=== PATIENT | male | born 1980 | race Caucasian/White ===

== ENCOUNTER 2017-08-05 12:17 | Emergency (ER) | payer OTHER ==
[~2017-08-05] VITALS: Ht 180.3 cm; Wt 95.3 kg
[2017-08-05 12:58] LABS: URINE BILIRUBIN NEGATIVE (Negative); URINE BLOOD 2+ (Negative); URINE CLARITY CLEAR; URINE COLOR YELLOW; URINE GLUCOSE-RANDOM NEGATIVE (Negative); URINE KETONES NEGATIVE (Negative); URINE LEUKOCYTES NEGATIVE (Negative); URINE NITRITE NEGATIVE (Negative); URINE PROTEIN NEGATIVE (Negative); URINE SPECIFIC GRAVITY 1.025 (1.005-1.030); URINE UROBILINOGEN 0.2 E.U./dl (0.2-1.0)
[2017-08-05 13:06] LABS: BACTERIA 1-9 Few /HPF (None Seen); CASTS None Seen /LPF (None Seen); CRYSTALS None Seen /LPF (None Seen); MUCUS None Seen strn/LPF (None Seen); SQUAMOUS 4-10 Moderate /LPF (0-3); URINE RBC 3-10 Few /HPF (0-2); URINE WBC 0-5 Rare /HPF (0-5)
[2017-08-05] MEDS ORDERED: CIPRO500 MG PO (15:10)
[2017-08-05 15:14] VITALS: BP 133/75
== END 2017-08-05 15:15 | disposition home or self-care (01) ==
LOC: M.ERS 12:17
PROVIDERS: Physician Assistant
DX: S60.221A Contusion of right hand, initial encounter (principal); S00.83XA Contusion of other part of head, initial encounter; Y00.XXXA Assault by blunt object, initial encounter

== ENCOUNTER → 2018-01-28 | Outpatient (CLI) | payer OTHER ==
[~2018-01-28] MED LIST: CIPRO500 MG PO; IBUPROFEN 800800 M1 PO; MOBIC15 MG PO; NORCO 5-325 TA1 EACH PO; ROBAXIN 750 MG750 M1 PO
== END ==
LOC: M.RAD 14:30
DX: M25.571 Pain in right ankle and joints of right foot (principal); R22.41 Localized swelling, mass and lump, right lower limb; F10.99 Alcohol use, unspecified with unspecified alcohol-induced disorder; Z87.891 Personal history of nicotine dependence

== ENCOUNTER → 2018-02-10 | Outpatient (CLI) | payer OTHER | LOC: M.MRI 07:30 | DX: M65.871 Other synovitis and tenosynovitis, right ankle and foot (principal); F10.99 Alcohol use, unspecified with unspecified alcohol-induced disorder; Z87.891 Personal history of nicotine dependence ==

== ENCOUNTER 2018-03-30 17:15 | Emergency (ER) | payer OTHER ==
[~2018-03-30] VITALS: Ht 180.3 cm; Wt 104.3 kg
[~2018-03-30 17:15] MED LIST changes: -IBUPROFEN 800800 M1 PO; -MOBIC15 MG PO; -NORCO 5-325 TA1 EACH PO; -ROBAXIN 750 MG750 M1 PO
[2018-03-30] MEDS ORDERED: MOBIC15 MG PO (17:28)
[2018-03-30] MEDS ORDERED: NORCO 5-325 TA1 EACH PO (18:43)
[2018-03-30] MEDS ORDERED: IBUPROFEN 800800 M1 PO (18:45)
[2018-03-30 18:59] VITALS: BP 148/89
== END 2018-03-30 18:59 | disposition home or self-care (01) ==
LOC: M.ERS 17:15
DX: S20.212A Contusion of left front wall of thorax, initial encounter (principal); M79.604 Pain in right leg; F17.210 Nicotine dependence, cigarettes, uncomplicated; Y08.89XA Assault by other specified means, initial encounter; Y93.89 Activity, other specified; Y92.89 Other specified places as the place of occurrence of the external cause; Y99.8 Other external cause status

== ENCOUNTER 2018-04-02 15:01 | Emergency (ER) | payer OTHER ==
[~2018-04-02] VITALS: Ht 180.3 cm; Wt 104.3 kg
[~2018-04-02 15:01] MED LIST changes: +IBUPROFEN 800800 M1 PO; +MOBIC15 MG PO; +NORCO 5-325 TA1 EACH PO
[2018-04-02 15:06] VITALS: BP 174/107
[2018-04-02] MEDS ORDERED: ROBAXIN 750 MG750 M1 PO (15:28)
== END 2018-04-02 15:34 | disposition home or self-care (01) ==
LOC: M.ERS 15:01
DX: M94.0 Chondrocostal junction syndrome [Tietze] (principal); F17.210 Nicotine dependence, cigarettes, uncomplicated

== ENCOUNTER → 2018-06-03 | Outpatient (CLI) | payer OTHER ==
[~2018-06-03] MED LIST changes: +ROBAXIN 750 MG750 M1 PO
== END ==
LOC: M.ULTRA 08:00
DX: K82.0 Obstruction of gallbladder (principal); N28.1 Cyst of kidney, acquired; D72.829 Elevated white blood cell count, unspecified; D47.3 Essential (hemorrhagic) thrombocythemia